=== PATIENT | male | born 1955 ===

== ENCOUNTER 2018-06-17 17:18 | Emergency (ER) | payer MEDICAID ==
[2018-06-17] MEDS ORDERED: Tdap Vaccine 0.5 ml Vial (10-64 yrs) IM ONE ×2 (17:46→18:40)
[2018-06-17] MEDS ORDERED: Lidocaine 1% PF (5ml) Amp INJ STA (17:46)
[2018-06-17 17:49] VITALS: BP 158/102; PULSE 90; RESP 20; TEMP 98.8; O2SAT 98; BMI 24.3
--- NOTE | 2018-06-17 17:53 | C.PDOC ---
History Of Present Illness 62 y/o male presents to ED for evaluation of laceration sustained to right 2nd finger while cutting wood with saw. Patient denies hand weakness, numbness, other injury or any other complaints at this time. Chief Complaint (Nursing): Abnormal Skin Integrity History Per: Patient History/Exam Limitations: no limitations Onset/Duration Of Symptoms: Days Current Symptoms Are (Timing): Still Present Past Medical History Reviewed: Historical Data, Nursing Documentation, Vital Signs Vital Signs: Last Vital Signs Temp 98.8 F 06/17/18 17:39 Pulse 90 06/17/18 17:39 Resp 20 06/17/18 17:39 BP 158/102 H 06/17/18 17:39 Pulse Ox 98 06/17/18 18:30 - Medical History PMH: HTN Surgical History: No Surg Hx Family History: States: No Known Family Hx - Social History Hx Alcohol Use: No Hx Substance Use: No - Immunization History Hx Tetanus Toxoid Vaccination: No Hx Influenza Vaccination: No Hx Pneumococcal Vaccination: No Review Of Systems Musculoskeletal: Positive for: Hand Pain Skin: Negative for: Rash, Bruising Neurological: Negative for: Weakness, Numbness Physical Exam - Physical Exam Appears: Non-toxic, No Acute Distress Skin: Warm, Dry, No Rash, Other (2cm to right 2nd finger ) Head: Atraumatic, Normacephalic Eye(s): bilateral: Normal Inspection Oral Mucosa: Moist Extremity: Capillary Refill (<2 seconds), No Deformity Pulses: Right Radial: Normal Neurological/Psych: Oriented x3, Normal Motor, Normal Sensation ED Course And Treatment O2 Sat by Pulse Oximetry: 98 Laceration - Laceration Repair right 2nd finger Wound Length (In cm): 2 Description Of Wound: Linear Wound Cleansed With: Betadine, Sterile Saline Anesthesia: Lidocaine 2% Wound Examination: Irrigated With Saline Wound Closure: Suture (6) Suture Technique And Material Used: Nylon (3-O) Disposition - Disposition Referrals: Ge Arriaga, [Non-Staff] - Disposition: HOME/ ROUTINE Disposition Time: 18:30 Condition: GOOD Additional Instructions: MARIELLA MAX, thank you for letting us take care of you today. Your provider was Nicola Liz DO and you were treated for RT HAND LACERATION. The emergency medical care you received today was directed at your acute symptoms. If you were prescribed any medication, please fill it and take as directed. It may take several days for your symptoms to resolve. Return to the Emergency Department if your symptoms worsen, do not improve, or if you have any other problems. Please contact your doctor or call one of the physicians/clinics you have been referred to that are listed on the Patient Visit Information form that is included in your discharge packet. Bring any paperwork you were given at discharge with you along with any medications you are taking to your follow up visit. Our treatment cannot replace ongoing medical care by a primary care provider outside of the emergency department. Thank you for allowing the [facility] team to be part of your care today. Keep the finger splint on until the stitches are removed. Follow up with your primary care doctor in 7-10 days for suture removal. Prescriptions: Cephalexin [cephalexin] 500 mg PO TID #21 cap Ibuprofen [Motrin] 600 mg PO Q6 PRN #20 tab PRN Reason: Pain, Moderate (4-7) Instructions: Laceration Repair With Stitches (DC) Forms: [employer] (Kyrgyz) - Clinical Impression Clinical Impression: Laceration - Scribe Statement The provider has reviewed the documentation as recorded by the Scribcrescencio Wagoner All medical record entries made by the Normaibcrescencio were at my direction and personally dictated by me. I have reviewed the chart and agree that the record accurately reflects my personal performance of the history, physical exam, medical decision making, and the department course for this patient. I have also personally directed, reviewed, and agree with the discharge instructions and disposition.
[2018-06-17] MEDS ORDERED: Lidocaine 2% MPF (5 ml) Inj ONE (17:59)
[2018-06-17] MEDS ORDERED: Bacitracin 500 Units/gm Oint Foilpak UD ONE (18:40)
== END 2018-06-17 18:49 | disposition home or self-care (01) ==
LOC: C.ER 17:18
DX: S61.210A Laceration without foreign body of right index finger without damage to nail, initial encounter (principal); W45.8XXA Other foreign body or object entering through skin, initial encounter

== ENCOUNTER 2018-06-24 13:34 | Emergency (ER) | payer MEDICAID ==
[2018-06-24 13:34] VITALS: BMI 24.3
[2018-06-24 13:46] VITALS: BP 139/70; PULSE 79; RESP 16; TEMP 98.9; O2SAT 97
--- NOTE | 2018-06-24 13:55 | C.PDOC ---
History Of Present Illness 62 year old male presents to the emergency department for a scheduled suture removal from right index finger. Patient denies fever, wound redness, or discharge. Patient states that he has been compliant with his antibiotics and denies any other active complaints. Time Seen by Provider: 06/24/18 13:36 Chief Complaint (Nursing): Suture/Staple Removal History Per: Patient History/Exam Limitations: no limitations Onset/Duration Of Symptoms: Hrs Location Of Injury: Right: Hand (index finger) Past Medical History Reviewed: Historical Data, Nursing Documentation, Vital Signs Vital Signs: Last Vital Signs Temp 98.9 F 06/24/18 13:44 Pulse 79 06/24/18 13:44 Resp 16 06/24/18 13:44 BP 139/70 06/24/18 13:44 Pulse Ox 97 06/24/18 14:14 - Medical History PMH: HTN Surgical History: No Surg Hx Family History: States: No Known Family Hx - Social History Hx Alcohol Use: No Hx Substance Use: No - Immunization History Hx Tetanus Toxoid Vaccination: Yes Hx Influenza Vaccination: No Hx Pneumococcal Vaccination: No Review Of Systems Except As Marked, All Systems Reviewed And Found Negative. Musculoskeletal: Positive for: Hand Pain (right index finger suture) Skin: Negative for: Other (discharge, erythema) Neurological: Negative for: Weakness, Numbness Physical Exam - Physical Exam Appears: Well, Non-toxic, No Acute Distress Skin: Normal Color, Warm, Other (Right 2nd finger laceration well healed, closed with sutures#6. No edema, no erythema, no wound discharge.) Extremity: Normal ROM (of right 2nd finger), No Tenderness (right hand), Capillary Refill (less than 2sec to left finger), No Deformity, No Swelling Neurological/Psych: Oriented x3, Normal Speech, Normal Motor, Normal Sensation, Normal Reflexes ED Course And Treatment O2 Sat by Pulse Oximetry: 97 (RA) Pulse Ox Interpretation: Normal Progress Note: On re-eval, pt is afebrile, hemodynamicalys table. non-toxoic. Right hand: RIght 2nd middle phalanx laceration well healed, sutures#6 removed without difficulty. FAROM, no neurovascular deficits, no cellulitis. Sutures removed without difficulty completely. Pt advised on wound care. ref. to f/u with PMD as need for re-eval. Disposition Counseled Patient/Family Regarding: Diagnosis, Need For Followup - Disposition Referrals: [facility] [Outside] Disposition: HOME/ ROUTINE Disposition Time: 13:54 Condition: STABLE Additional Instructions: Keep wound clean, dry, avoid water exposure for 1 week Follow up with PMD as need for further evaluation and treatment return to ED if any worsening or new changes. Instructions: Stitches Removal Forms: [employer] ([place]) Print Language: TRINIDADIAN - Clinical Impression Clinical Impression: Removal of suture - PA / [employer] / Resident Statement MD/DO has reviewed & agrees with the documentation as recorded. - Scribe Statement The provider has reviewed the documentation as recorded by the Scribe (Puh Sarmiento) All medical record entries made by the Scribe were at my direction and personally dictated by me. I have reviewed the chart and agree that the record accurately reflects my personal performance of the history, physical exam, medical decision making, and the department course for this patient. I have also personally directed, reviewed, and agree with the discharge instructions and disposition.
== END 2018-06-24 14:30 | disposition home or self-care (01) ==
LOC: C.ER 13:34
DX: Z48.02 Encounter for removal of sutures (principal)